=== PATIENT | female | born 1935 | race Hispanic/Latino ===

== ENCOUNTER 2023-01-29 16:31 | Emergency (ER) | payer MEDICARE, BC ==
[~2023-01-29] VITALS: Ht 162.6 cm; Wt 53.1 kg
[2023-01-29] MEDS ORDERED: ALTEPLASE 100 MG VIAL IVP ONE (16:32)
[2023-01-29] MEDS ORDERED: 0.9%NACL 50ML 50 ML IV ONE (16:32)
[2023-01-29] MEDS ORDERED: ALTEPLASE 100MG 1 VIAL IVP STA (16:52)
[2023-01-29 17:04] LABS: BASOPHILS % (AUTO) 0.7 % (0.0-5.0); EOSINOPHILS % (AUTO) 3.8 % (0.0-8.0); HEMATOCRIT 32.8 % (36-48); LYMPHOCYTES % (AUTO) 33.2 % (21.0-51.0); MEAN CORPUSCULAR HEMOGLOBIN 28.2 pg (27.0-33.0); MEAN CORPUSCULAR HGB CONC 32.3 g/dL (32.0-36.0); MEAN CORPUSCULAR VOLUME 87.2 fL (79-99); MONOCYTES % (AUTO) 14.7 % (3.0-13.0); NEUTROPHILS % (AUTO) 47.4 % (40.0-77.0); PLATELET COUNT (AUTO) 201 K/uL (130-400); RED BLOOD CELL COUNT(AUTO) 3.76 MIL/uL (4.00-5.50); RED CELL DISTRIBUTION WIDTH 16.1 % (11.0-15.5); WHITE BLOOD COUNT (AUTO) 5.8 K/uL (4.8-10.8)
[2023-01-29 17:13] LABS: CREATININE 0.7 mg/dL (0.5-1.5); POTASSIUM 4.1 mmol/L (3.5-5.1)
[2023-01-29 17:14] LABS: INR 1.02 (0.85-1.15); PROTHROMBIN TIME 11.1 SEC (9.6-11.6)
[2023-01-29] MEDS ORDERED: IOHEXOL-350 75 ML VIAL IV ONE (17:14)
[2023-01-29 17:16] LABS: PARTIAL THROMBOPLASTIN TIME 28.8 SEC (26.3-35.5)
[2023-01-29 17:22] LABS: ALBUMIN 3.3 g/dL (3.5-5.0); TOTAL PROTEIN, SERUM 6.2 g/dL (6.0-8.3)
[2023-01-29 17:31] LABS: B-TYPE NATRIURETIC PEPTIDE 147 pg/mL (0-100)
[2023-01-29 19:00] LABS: APPEARANCE,URINE CLEAR (CLEAR); BILIRUBIN,URINE NEGATIVE (NEGATIVE); COLOR,URINE COLORLESS (YELLOW); GLUCOSE, URINE (UA) NEGATIVE (NEGATIVE); KETONES,URINE NEGATIVE (NEGATIVE); LEUKOCYTE ESTERASE ,URINE NEGATIVE Leu/uL (NEGATIVE); NITRATE,URINE NEGATIVE (NEGATIVE); OCCULT BLOOD,URINE NEGATIVE (NEGATIVE); PROTEIN,URINE NEGATIVE (NEGATIVE); UROBILINOGEN,URINE 0.2 mg/dL (0.2-1.0)
[2023-01-29 19:05] LABS: BACTERIA,URINE RARE /HPF (None Seen); RBC,URINE 0-1 /HPF (0-1); SQUAMOUS EPITHELIAL CELL,UR RARE /HPF (0-2); WBC,URINE 0-1 /HPF (0-1)
[2023-01-29 19:11] VITALS: BP 168/67
== END 2023-01-29 19:55 | disposition short-term general hospital (02) ==
LOC: EDH 16:31
DX: I63.9 Cerebral infarction, unspecified (principal)
CPT/HCPCS: 99291; 70450; 96374; 71045; 82550; 83721; 84484; 80053; 83880; 85025; 85610; 85730; 82948; 81001; 36415; 70496; 70498; 99292; 93005; J2997; Q9967